=== PATIENT | male | born 1960 | race Hispanic/Latino ===

== ENCOUNTER 2020-09-24 10:52 | Inpatient (IN) ==
[2020-09-24] MEDS ORDERED: SENNOSIDES 8.6 MG TABLET PO PRN (11:44)
[2020-09-24] MEDS ORDERED: ONDANSETRON 4 MG TAB.RAPDIS PO PRN (11:44)
[2020-09-24] MEDS ORDERED: CODEINE PHOSPHATE/GUAIFENESIN 5 ML UDC PO PRN (11:48)
[2020-09-24] MEDS ORDERED: GLYCERIN/PROPYLENE GLYCOL 150 DROP BTL EACHEYE PRN (11:48)
[2020-09-24] MEDS ORDERED: ACETAMINOPHEN 325 MG TABLET PO PRN (11:48)
[2020-09-24] MEDS: LORazepam 1 MG TABLET PO SCH ×2 (13:44→18:56)
[2020-09-24] MEDS: FUROSEMIDE 40 MG TABLET PO SCH (13:44)
[2020-09-24] MEDS ORDERED: HYDROcodone/ACETAMINOPHEN 1 EACH TABLET PO SCH (21:00)
[2020-09-24] MEDS: MORPHINE SULFATE 10 MG/0.5 ML SYRINGE PO PRN ×2 (21:32→22:43)
[2020-09-24] MEDS: LORazepam 1 MG TABLET PO PRN (22:15)
--- NOTE | 2020-09-24 23:19 | HP ---
Chief Complaint - Chief Complaint Date of Service: 09/24/20 Time of Service: 20:30 Chief Complaint: Hospice Respite Care History of Present Illness: Oracio is a 60 yo male with end stage CHF with home hospice. He was having worsening shortness of breath and discomfort and his comfort needs were not controlled at home. Hospice recommend inpatient respite for improvement in symptoms. Medications were reviewed with [facility]. Will continue all current medications. Will evaluate for need of increased pain medication. Medical History (Last Reviewed 09/24/20 @ 11:44 by Enoch Drummond RN) CHF (congestive heart failure) Cardiac defibrillator in situ Surgical History: Surgical History (Last Reviewed 09/24/20 @ 11:44 by Enoch Drummond RN) No pertinent past surgical history Family History: Family History (Last Reviewed 09/24/20 @ 11:44 by Enoch Drummond RN) Father CHF (congestive heart failure) Lymphoma Sister Diverticulitis Breast cancer Mother Diabetes Sister Colon cancer Social History: (Last Reviewed 09/24/20 @ 11:44 by Enoch Drummond RN) Social History: adopted: No foster care: No prison: No lives independently: Yes household members: spouse number of children: 3 Tobacco: Smoking Status: Former smoker Alcohol: alcohol intake: former Substance Use: substance use type: does not use Review Of Systems (GEN) - Review of Systems Generalized/Overall Review: Present: Weakness. Absent: Chills, Fever EENTM: Present: No Symptoms Reported Respiratory: Present: Shortness of Breath. Absent: Cough Cardiac: Present: Chest Pain. Absent: Edema, Palpitations, Syncope Abdominal: Present: Nausea. Absent: Vomiting Genitourinary: Present: No Symptoms Reported Musculoskeletal: Present: Joint Pain, Back Pain Neurological: Present: Anxiety, Weakness Skin: Present: No Symptoms Reported Endocrine: Present: No Symptoms Reported Immunizations: IMMUNIZATION HX Immunizations Up to Date Yes History of Influenza Vaccine No Hx Pneumococcal Vaccination No Allergies/Adverse Reactions: Allergies Allergy/AdvReac Type Severity Reaction Status Date / Time sumatriptan [From Imitrex] AdvReac Hives Verified 09/24/20 11:44 sumatriptan succinate AdvReac Hives Verified 09/24/20 11:44 [From Imitrex] Home Medications: HOME MEDICATIONS Acetaminophen with Codeine [Tylenol with Codeine #3 Tablet] 1 each PO PRN PRN 07/22/13 [Last Taken Unknown] Albuterol Sulfate [Albuterol Sulfate Hfa] 2 puff IH Q4H PRN 07/22/13 [Last Taken Unknown] Carisoprodol [Soma] 350 mg PO TID 07/22/13 [Last Taken Unknown] Indomethacin [Indomethacin ER] 75 mg PO BID 07/22/13 [Last Taken Unknown] Promethazine HCl 25 mg PO BID 07/22/13 [Last Taken Unknown] SUMAtriptan SUCCINATE [Imitrex] 100 mg PO PRN PRN 07/22/13 [Last Taken Unknown] fentaNYL [Duragesic] 25 mcg TD Q72H 07/22/13 [Last Taken Unknown] Naltrexone HCl [ReVia] 50 mg PO DAILY #0 tablet 07/23/13 [Last Taken Unknown] lamoTRIgine [Lamictal] 250 mg PO DAILY #0 tablet 07/23/13 [Last Taken Unknown] risperiDONE [Risperdal] 2 mg PO DAILY #0 tablet 07/23/13 [Last Taken Unknown] docusate sodium 50 mg/5 mL oral liquid 100 mg PO BID PRN #473 ml 07/18/20 [Last Taken Unknown] zolpidem 10 mg tablet 10 mg PO HS PRN #30 tab 09/13/20 [Last Taken Unknown] Bumetanide 2 mg PO DAILY PRN 09/24/20 [Last Taken Unknown] Duloxetine HCl [Cymbalta] 60 mg PO DAILY 09/24/20 [Last Taken Unknown] Furosemide [Lasix] 40 mg PO QPM 09/24/20 [Last Taken Unknown] Furosemide [Lasix] 80 mg PO QAM 09/24/20 [Last Taken Unknown] HYDROcodone/ACETAMINOPHEN [Hydrocodon-Acetaminophen 5-325] 1 ea PO BID 09/24/20 [Last Taken Unknown] Irbesartan [Avapro] 75 mg PO DAILY 09/24/20 [Last Taken Unknown] Lorazepam 2 mg PO Q2H PRN 09/24/20 [Last Taken Unknown] Lorazepam [Ativan] 2 mg PO TID 09/24/20 [Last Taken Unknown] Magnesium Hydroxide [Milk Of Magnesia] 30 ml PO DAILY PRN 09/24/20 [Last Taken Unknown] Morphine Sulfate [Morphine Sulfate Conc. Oral Solution] 0.75 ml PO Q1H PRN 09/24/20 [Last Taken Unknown] Ondansetron HCl [Zofran] 8 mg PO TID PRN 09/24/20 [Last Taken Unknown] Sennosides/Docusate Sodium [Senna-Time S Tablet] 2 ea PO HS PRN 09/24/20 [Last Taken Unknown] Exam - Exam Vital Signs: Vital Signs - Last Taken Temp 36.8 C 09/24/20 11:47 Pulse 99 09/24/20 11:47 Resp 20 09/24/20 11:47 BP 108/70 09/24/20 11:47 Pulse Ox 94 09/24/20 11:47 Constitutional: Present: Alert, Oriented x3, Cooperative, Mild distress - Dyspnea, pain ENT Exam: Present: hearing grossly normal Eye Exam: bilateral eye: normal inspection Respiratory: Present: lungs clear, respiratory distress - mild shortness of breath Cardiovascular/Chest: Present: regular rate, rhythm, no murmur Peripheral Pulses: radial (R): 2+, radial (L): 2+ Abdomen: Present: Normal bowel sounds, soft, nontender, nondistended Skin Exam: Present: normal color, warm/dry Appearance: Present: appropriate appearance, appropriate insight Eye contact: Present: cooperative, good eye contact, normal speech Diagnostic Studies: Laboratory Results SARS-CoV-2 (PCR) Not detected (NotDetected) 09/24/20 14:42 Assessment/Plan - Narrative Narrative: Oracio will be admitted for Inpatient Respite care for hospice. Will evaluate analgesia needs and adjust medications as needed. Will consult with hospice. - Assessment/Plan (1) Hospice care patient Problem: Acute
[2020-09-25] MEDS: HYDROcodone/ACETAMINOPHEN 1 EACH TABLET PO SCH ×4 (00:49→18:47)
--- NOTE | 2020-09-25 08:28 | PN ---
Subjective - Date and Time Seen Date: 09/25/20 Time: 08:20 Subjective Narrative: Patient is a bit slow to respond to questions, but he answers most of them. He reports being able to sleep overnight, and had breakfast this morning. His lower extremity swelling is better today. Objective - Review of Systems Generalized/Overall Review: Reports: No Symptoms Reported Respiratory: Reports: No Symptoms Reported Abdominal: Reports: No Symptoms Reported Genitourinary Symptoms: Reports: No Symptoms Reported - Vitals Vitals: Last Vital Signs Temp 36.8 C 09/24/20 11:47 Pulse 99 09/24/20 11:47 Resp 20 09/24/20 11:47 BP 108/70 09/24/20 11:47 Pulse Ox 94 09/24/20 11:47 - Exam Constitutional: Present: No distress Respiratory: Present: no respiratory distress Abdomen: Present: distended Extremity: Present: lower extremity edema - 1+ pitting bilaterally. Kerlex around right lower leg, just distal to knee Neurologic: Present: other - slow to answer questions Assessment/Plan Plan Narrative: Patient is currently hospitalized for respite care. He is being cared for primarily by his sister, but his care has been difficult. He has exhibited some behaviors at home. He seems to be comfortable currently, so the behaviors may be situational. Has not required prn morphine. He is a bit somnolent today, and if he is still somnolent tomorrow, will reduce his 2 mg scheduled lorazepam dose. Greatly appreciate hospice assistance in helping with discharge planning. - Problems/Diagnosis (1) Heart failure Problem: Chronic (2) Hospice care patient Problem: Acute
[2020-09-25] MEDS: LORazepam 1 MG TABLET PO SCH ×3 (08:40→17:37)
[2020-09-25] MEDS: DULoxetine HCL 30 MG CAPSULE.SA PO SCH (08:41)
[2020-09-25] MEDS: FUROSEMIDE 80 MG TABLET PO SCH (08:45)
[2020-09-25] MEDS ORDERED: LOSARTAN POTASSIUM 50 MG TABLET PO SCH (09:00)
[2020-09-25] MEDS: FUROSEMIDE 40 MG TABLET PO SCH (14:20)
[2020-09-25 14:21] VITALS: BP 87/65
[2020-09-25] MEDS: MORPHINE SULFATE 10 MG/0.5 ML SYRINGE PO PRN ×2 (17:53→23:08)
[2020-09-25] MEDS: LORazepam 1 MG TABLET PO PRN (23:08)
[2020-09-26] MEDS: HYDROcodone/ACETAMINOPHEN 1 EACH TABLET PO SCH ×2 (00:36→05:00)
[2020-09-26] MEDS: DULoxetine HCL 30 MG CAPSULE.SA PO SCH (09:22)
[2020-09-26] MEDS: LORazepam 1 MG TABLET PO SCH ×3 (09:22→18:25)
[2020-09-26] MEDS: FUROSEMIDE 80 MG TABLET PO SCH (09:52)
[2020-09-26] MEDS ORDERED: LORAZEPAM 2 MG/ML ORAL.CONC PO PRN (10:00)
[2020-09-26] MEDS: MORPHINE SULFATE 10 MG/0.5 ML SYRINGE PO SCH ×3 (10:53→21:42)
[2020-09-26] MEDS: LORAZEPAM 2 MG/ML ORAL.CONC PO SCH ×2 (13:27→17:41)
[2020-09-26] MEDS: MORPHINE SULFATE 10 MG/0.5 ML SYRINGE PO PRN ×2 (17:44→23:20)
[2020-09-27] MEDS: MORPHINE SULFATE 10 MG/0.5 ML SYRINGE PO SCH ×4 (03:42→20:15)
[2020-09-27] MEDS: MORPHINE SULFATE 10 MG/0.5 ML SYRINGE PO PRN (07:36)
[2020-09-27] MEDS: LORazepam 1 MG TABLET PO SCH ×3 (10:06→17:41)
[2020-09-27] MEDS: LORAZEPAM 2 MG/ML ORAL.CONC PO SCH ×3 (10:06→17:40)
--- NOTE | 2020-09-27 14:44 | PN ---
Subjective - Date and Time Seen Date: 09/27/20 Time: 14:44 Subjective Narrative: He's having more pauses in breathing. Had some pain overnight, but has mostly been calm and sleeping. Objective - Review of Systems Respiratory: Reports: Shortness of Breath Cardiac: Reports: Edema - abdomen Abdominal: Reports: No Symptoms Reported Genitourinary Symptoms: Reports: No Symptoms Reported - Vitals Vitals: Last Vital Signs Temp 36.8 C 09/24/20 11:47 Pulse 116 H 09/27/20 03:59 Resp 10 L 09/27/20 03:59 BP 87/65 L 09/25/20 14:20 Pulse Ox 94 09/24/20 11:47 - Exam Constitutional: Present: No distress, Somnolent Respiratory: Present: no respiratory distress, other - pauses in breathing Abdomen: Present: firm, distended Extremity: Absent: lower extremity edema Skin Exam: Absent: mottled Eye contact: Present: other - does not interact Assessment/Plan Plan Narrative: His breathing pattern suggests he may be nearing end of life imminently. He is not awake enough to swallow tablets, and meds changed to liquid yesterday. Today is day 4 of respite care for family. He is calm here with current meds. Will reassess tomorrow. - Problems/Diagnosis (1) Heart failure Problem: Chronic (2) Hospice care patient Problem: Acute (3) End of life care Problem: Acute
[2020-09-28] MEDS: MORPHINE SULFATE 10 MG/0.5 ML SYRINGE PO SCH ×2 (02:02→09:36)
--- NOTE | 2020-09-28 09:04 | DS ---
(1) Heart failure Problem: Chronic (2) Hospice care patient Problem: Acute (3) End of life care Problem: Acute Date of Discharge:: 09/28/20 Hospital Course: Patient is under hospice care for heart failure, and had been living upstairs under the care of his sister. At home, he was having significant difficulty keeping comfortable, was agitated and uncomfortable, and he was admitted for respite care for 5 days. While here, he was comfortable with scheduled and prn morphine, as well as scheduled and prn lorazepam. He was too somnolent to swallow pills, so these were changed to liquid during this stay. Limited po intake. He was awake, seemingly watching TV and able to answer questions on the day of DC. He will go home to his son's house after DC. Will continue current meds and add atropine. 40 minutes spent on this discharge exam, discussion with team members, medication management, note writing. Procedures Performed: none Results and Findings: Lab Pending Results 09/24/20 14:42: SARS-CoV-2 (PCR) Not detected Discharge Location: Home Disposition: Hospice Home Condition: Poor Discharge Activity: Activity as tolerated Discharge Diet: General/regular food Additional Patient Instructions (free text): Continue services with [facility]. Prescriptions (Any new or edited meds): Lorazepam [Ativan Intensol] 2 mg PO Q2H PRN #30 ml PRN Reason: Anxiety Transmission Status: Sent to [facility] Lorazepam [Ativan Intensol] 1 mg PO TID #30 ml Transmission Status: Sent to [facility] Atropine Sulfate [Atropine 1% Ophthalmic Solution] 2 drp SL Q4H PRN #15 ml PRN Reason: Oral Secretions or respiratory Transmission Status: Pending to [facility] Morphine Sulfate [Morphine Sulfate Conc. Oral Solution] 20 mg PO Q1H PRN #30 ml PRN Reason: pain and/or respiratory distre Transmission Status: Sent to [facility] Morphine Sulfate [Morphine Sulfate Conc. Oral Solution] 10 mg PO Q6H #30 ml Transmission Status: Sent to [facility] Complete Home Medications List: Complete Home Medication List: Atropine Sulfate [Atropine 1% Ophthalmic Solution] 2 drp SL Q4H PRN #15 ml 09/28/20 Glycerin/Propylene Glycol [Artificial Tears] 2 drp EACHEYE PRN PRN btl 09/28/20 Lorazepam [Ativan Intensol] 1 mg PO TID #30 ml 09/28/20 Lorazepam [Ativan Intensol] 2 mg PO Q2H PRN #30 ml 09/28/20 Morphine Sulfate [Morphine Sulfate Conc. Oral Solution] 10 mg PO Q6H #30 ml 09/28/20 Morphine Sulfate [Morphine Sulfate Conc. Oral Solution] 20 mg PO Q1H PRN #30 ml 09/28/20 Ondansetron [Zofran Odt] 8 mg PO Q4H PRN tab.rapdis 09/28/20 Forms: Patient Portal Registration
[2020-09-28] MEDS: LORazepam 1 MG TABLET PO SCH ×2 (09:37→12:36)
[2020-09-28] MEDS: LORAZEPAM 2 MG/ML ORAL.CONC PO SCH ×2 (09:39→12:37)
== END 2020-09-28 13:38 | disposition hospice, home (50) | DRG 951 ==
LOC: MS 10:52
PROVIDERS: ADMIT Family Medicine; ATTEND Family Medicine